=== PATIENT | female | born 1990 | race American Indian/Alaskan Native ===

== ENCOUNTER 2016-09-05 07:25 | Emergency (ER) | payer MEDICAID ==
[2016-09-05 07:43] VITALS: BP 118/76
--- NOTE | 2016-09-05 09:52 | Emergency Department Report ---
HPI - General Chief Complaint: Chest Pain Time Seen by Provider: 09/05/16 09:47 - HPI HPI: 26-year-old -[place] female that is 5 weeks comes in today for complaint of right side chest pain that radiated to her back times this morning. Patient reports that she's had a cough for approximately 3 days. She denies any shortness of breathing denies any fever no chills no dysuria she is voiding well she does admit to nausea and vomiting with the . She does have a past medical history of asthma she is 3 para 2. She did start vitamins on Sunday. She reports now that she is having no chest pain or discomfort no shortness of breathing and no cough at this time. [facility]. ED Past Medical Hx - Past Medical History Hx Asthma: Yes Additional medical history: pnuemonia in may 2015 - Surgical History Additional Surgical History: left knee surgery, c sect X 2 - Social History Smoking Status: Never Smoker Substance Use Type: None - Medications Home Medications: Home Medications Medication Instructions Recorded Confirmed Last Taken Type Albuterol Sulfate [Ventolin HFA] 2 puff IH Q4H PRN #1 inh 05/28/15 09/05/16 10:00 Rx ED Review of Systems ROS: Stated complaint: CHEST TIGHTNESS/5 WKS PREG/ Other details as noted in HPI Respiratory: cough Cardiovascular: chest pain (denies currently) Endocrine: no symptoms reported Gastrointestinal: denies: abdominal pain, nausea, diarrhea Genitourinary: denies: urgency, dysuria, discharge Musculoskeletal: denies: back pain, joint swelling, arthralgia Skin: denies: rash, lesions Neurological: denies: headache, weakness, paresthesias Psychiatric: denies: anxiety, depression Physical Exam - Physical Exam Vital Signs: Vital Signs 09/05/16 07:39 Temperature 98.0 F Pulse Rate 88 Respiratory 16 Rate Blood Pressure 118/76 O2 Sat by Pulse 98 Oximetry General: Patient's alert and oriented 3. She is no acute distress. She denies any pain at this time. Physical Exam: GENERAL: Alert and oriented x3, no apparent distress, Normal Gait, atraumatic. HEAD: Head is normocephalic and a-traumatic. MOUTH:Mouth is well hydrated and without lesions. Tonsils nonerythematous or swollen, Uvula midline, Tongue not elevated. Mucous membranes are moist. Posterior pharynx clear, no exudate or lesions. Patent airways. NECK: Supple. Non edematous, No carotid bruits. No lymphadenopathy or thyromegaly. LUNGS: Symetrical with respiration, No wheezing, no rales or crackles, CTAB. HEART: S1, S2 present, regular rate and rhythm without murmur, no rubs, no gallops. ABDOMEN: No organomegaly was noted,Positive bowel sounds, soft, and non- distended. . Nontender to palpation on all Quadrants, NO CVA tenderness. EXTREMITIES/MUSCULOSKELETAL: No cyanosis, clubbing, rash, lesions or edema. Full ROM bilaterally. UE/LE Pulses 2+ bilaterally. LE and UE 5+ strength bilaterally NEUROLOGIC: No focal Deficit, Cranial nerves II through XII are grossly intact. No loss of sensation, No facial droop, PSYCHIATRIC: Mood is congruent with affect, . SKIN: Warm and dry, No lesions, No ulceration or induration present ED Course Vital Signs 09/05/16 07:39 Temperature 98.0 F Pulse Rate 88 Respiratory 16 Rate Blood Pressure 118/76 O2 Sat by Pulse 98 Oximetry ED Medical Decision Making - Medical Decision Making Patient has been evaluated by this provider fast track. Discussed with patient that her exam was within normal limits. Also discussed the patient to continue with the vitamins. She can only take Tylenol for pain management. [facility]. She may return back to the emergency room if symptoms recur persist or gets worse. Patient verbalized understanding Critical care attestation.: If time is entered above; I have spent that time in minutes in the direct care of this critically ill patient, excluding procedure time. ED Disposition Clinical Impression: Chest pain Qualifiers: Chest pain type: unspecified Qualified Code(s): R07.9 - Chest pain, unspecified Disposition: DISCHARGED TO HOME OR SELFCARE Is pt being admited?: No Does the pt Need Aspirin: No Condition: Stable Instructions: Chest Pain (ED) Additional Instructions: Please return to the emergency room if chest pains persist or gets worse. If you develop a fever or have respiratory distress. Referrals: PRIMARY CARE,MD [Primary Care Provider] - 3-5 Days Forms: Work/School Release Form(ED)
== END 2016-09-05 09:56 | disposition home or self-care (01) ==
LOC: ED 07:25
DX: O21.9 Vomiting of pregnancy, unspecified (principal); R07.9 Chest pain, unspecified; J45.909 Unspecified asthma, uncomplicated; J18.9 Pneumonia, unspecified organism; Z3A.01 Less than 8 weeks gestation of pregnancy
CPT/HCPCS: 93005; 93010; 99282

== ENCOUNTER 2019-09-14 23:29 | Emergency (ER) | payer MEDICAID ==
[2019-09-15] MEDS ORDERED: dexAMETHasone 20 MG/5 ML VIAL IM ONE (00:25)
[2019-09-15] MEDS ORDERED: ACETAMINOPHEN 500 MG TAB PO ONE (00:25)
--- NOTE | 2019-09-15 00:27 | XRay Report ---
CHEST 1 VIEW INDICATION: Chest Pain. COMPARISON: Chest x-ray from 03/05/2016 FINDINGS: Support devices: None. Heart: Within normal limits. Lungs/Pleura: No acute air space or interstitial disease. Additional findings: None. IMPRESSION: 1. No acute findings. Signer Name: Brent Santillan MD Signed: 09/15/2019 12:22 AM Workstation Name: [email or web address]
[2019-09-15 00:45] LABS: Basophils % (Auto) 0.4 % (0.0-1.8); Eosinophils # (Auto) 0.1 K/mm3 (0.0-0.4); Eosinophils % (Auto) 0.8 % (0.0-4.3); Hematocrit 30.8 % (30.3-42.9); Hemoglobin 10.5 gm/dl (10.1-14.3); Lymphocytes # (Auto) 2.1 K/mm3 (1.2-5.4); Mean Corpuscular HGB Conc 34 % (30-34); Mean Corpuscular Volume 86 fl (79-97); Monocytes # (Auto) 0.4 K/mm3 (0.0-0.8); Monocytes % (Auto) 4.9 % (0.0-7.3); Platelet Count 278 K/mm3 (140-440); Red Blood Count 3.57 M/mm3 (3.65-5.03); Red Cell Distribution Width 15.2 % (13.2-15.2)
[2019-09-15 01:14] LABS: Alanine Aminotransferase 16 units/L (7-56); Albumin 4.2 g/dL (3.9-5); BUN/Creatinine Ratio 9; Blood Urea Nitrogen 6 mg/dL (7-17); Calcium 9.4 mg/dL (8.4-10.2); Hemolysis Index 2
--- NOTE | 2019-09-15 01:20 | Emergency Department Report ---
ED General Adult HPI - General Chief complaint: Dyspnea/Respdistress Stated complaint: SOB Source: patient Mode of arrival: Ambulatory Limitations: No Limitations - History of Present Illness Initial comments: Patient is a 29-year-old -[place] Islander female with a history of chronic anxiety presents to the ED with complaint of acute onset persistent severe sore throat with dysphagia, hoarseness and persistent chest tightness and shortness of breath for the last 2 days. Patient also states that her symptoms got worse especially shortness of breath and chest tightness after she became more anxious when she watched news on TV regarding coronavirus. Patient states that she does not take any medication for anxiety and that since the coronavirus pandemic started her anxiety has worsened. Patient denies chest pain, dizziness, syncope, nausea, vomiting, headache, fever, chills, cough, abdominal pain, headache or nasal and sinus congestion. MD Complaint: Sore throat, hoarsenesschest tightnes, anxious -: Sudden, days(s) (2) Location: mouth, chest Radiation: non-radiation Severity scale (0 -10): 5 Quality: aching, sharp, constant Consistency: constant Improves with: none Worsens with: eating Associated Symptoms: denies other symptoms, shortness of breath. denies: confusion, chest pain, cough, diaphoresis, fever/chills, headaches, loss of appetite, malaise, nausea/vomiting, rash, seizure, syncope, weakness, other Treatments Prior to Arrival: none - Related Data Previous Rx's Medication Instructions Recorded Last Taken Type Albuterol Sulfate [Ventolin HFA] 2 puff IH Q4H PRN #1 inh 05/28/15 09/03/16 10:00 Rx Albuterol Sulfate [Proventil Hfa] 1 - 2 puff IH Q6H PRN #1 hfa.aer.ad 09/15/19 Unknown Rx Azithromycin [Zithromax Z-TERESE] 250 mg PO DAILY #6 tablet 09/15/19 Unknown Rx Ibuprofen [Motrin] 600 mg PO Q8H PRN #24 tablet 09/15/19 Unknown Rx Lidocaine Viscous 2% 10 ml PO Q6H PRN #120 ml 09/15/19 Unknown Rx hydrOXYzine PAMOATE [Vistaril] 25 mg PO Q6HR PRN #30 capsule 09/15/19 Unknown Rx methylPREDNISolone [Medrol 4MG 4 mg PO DAILY #21 tab.ds.pk 09/15/19 Unknown Rx DOSEPAK (21 tabs)] Allergies Allergy/AdvReac Type Severity Reaction Status Date / Time No Known Allergies Allergy Verified 09/05/16 07:44 ED Review of Systems ROS: Stated complaint: SOB Other details as noted in HPI Constitutional: denies: chills, fever Eyes: denies: eye pain, eye discharge, vision change ENT: throat pain. denies: ear pain Respiratory: shortness of breath. denies: cough, wheezing Cardiovascular: chest pain (Chest tightness). denies: palpitations Endocrine: no symptoms reported Gastrointestinal: denies: abdominal pain, nausea, diarrhea Genitourinary: denies: urgency, dysuria, discharge Musculoskeletal: denies: back pain, joint swelling, arthralgia Skin: denies: rash, lesions Neurological: denies: headache, weakness, paresthesias Psychiatric: anxiety. denies: depression Hematological/Lymphatic: denies: easy bleeding, easy bruising ED Past Medical Hx - Past Medical History Previous Medical History?: Yes Hx Asthma: Yes Additional medical history: pnuemonia in may 2015 - Surgical History Past Surgical History?: Yes Additional Surgical History: left knee surgery, c sect X 3 - Social History Smoking Status: Current Every Day Smoker Substance Use Type: None - Medications Home Medications: Home Medications Medication Instructions Recorded Confirmed Last Taken Type Albuterol Sulfate [Ventolin HFA] 2 puff IH Q4H PRN #1 inh 05/28/15 09/05/16 09/03/16 10:00 Rx Albuterol Sulfate [Proventil Hfa] 1 - 2 puff IH Q6H PRN #1 hfa.aer.ad 09/15/19 Unknown Rx Azithromycin [Zithromax Z-TERESE] 250 mg PO DAILY #6 tablet 09/15/19 Unknown Rx Ibuprofen [Motrin] 600 mg PO Q8H PRN #24 tablet 09/15/19 Unknown Rx Lidocaine Viscous 2% 10 ml PO Q6H PRN #120 ml 09/15/19 Unknown Rx hydrOXYzine PAMOATE [Vistaril] 25 mg PO Q6HR PRN #30 capsule 09/15/19 Unknown Rx methylPREDNISolone [Medrol 4MG 4 mg PO DAILY #21 tab.ds.pk 09/15/19 Unknown Rx DOSEPAK (21 tabs)] ED Physical Exam - General Limitations: No Limitations General appearance: alert, in no apparent distress - Head Head exam: Present: atraumatic, normocephalic, normal inspection - Eye Eye exam: Present: normal appearance, PERRL, EOMI Pupils: Present: normal accommodation - ENT ENT exam: Present: mucous membranes moist, TM's normal bilaterally, normal external ear exam, other (Erythematous oropharynx with white exudates on the tonsils) - Neck Neck exam: Present: normal inspection, full ROM - Respiratory Respiratory exam: Present: normal lung sounds bilaterally. Absent: respiratory distress, wheezes, rales, rhonchi, chest wall tenderness, accessory muscle use, decreased breath sounds - Cardiovascular Cardiovascular Exam: Present: regular rate, normal rhythm, normal heart sounds. Absent: systolic murmur, diastolic murmur, rubs, gallop - GI/Abdominal GI/Abdominal exam: Present: soft, normal bowel sounds. Absent: tenderness, guarding, rebound, hyperactive bowel sounds - Extremities Exam Extremities exam: Present: normal inspection, full ROM, normal capillary refill - Back Exam Back exam: Present: normal inspection, full ROM. Absent: tenderness, muscle spasm - Neurological Exam Neurological exam: Present: alert, oriented X3, CN II-XII intact, normal gait, reflexes normal - Psychiatric Psychiatric exam: Present: normal affect, normal mood, anxious - Skin Skin exam: Present: warm, dry, intact, normal color. Absent: rash ED Course Vital Signs 09/14/19 09/15/19 09/15/19 23:36 00:35 01:32 Temperature 98.6 F Pulse Rate 68 Respiratory 18 16 16 Rate Blood Pressure 125/74 Blood Pressure [Left] O2 Sat by Pulse 100 Oximetry 09/15/19 01:39 Temperature 98.2 F Pulse Rate 79 Respiratory 16 Rate Blood Pressure Blood Pressure 116/70 [Left] O2 Sat by Pulse 99 Oximetry ED Medical Decision Making - Lab Data Result diagrams: 09/15/19 00:35 09/15/19 00:35 - Radiology Data Radiology results: report reviewed, image reviewed Findings [facility] [address] [place] [address] XRay Report Signed Patient: CHANEL MIRZA Taz#: [id number] : 1990 Acct:[id number] Age/Sex: 29 / F ADM Date: 09/14/19 Loc: ED Attending Dr: Ordering Physician: BECKIE ESPINOSA Date of Service: 09/14/19 Procedure(s): XR chest 1V ap Accession Number(s): [id number] cc: BECKIE Garcia Time In Minutes: CHEST 1 VIEW INDICATION: Chest Pain. COMPARISON: Chest x-ray from 03/05/2016 FINDINGS: Support devices: None. Heart: Within normal limits. Lungs/Pleura: No acute air space or interstitial disease. Additional findings: None. IMPRESSION: 1. No acute findings. Signer Name: Brent Santillan MD Signed: 09/15/2019 12:22 AM Workstation Name: [id number] Transcribed By: JEREMIAS Dictated By: Brent Santillan MD Electronically Authenticated By: Brent Santillan MD Signed Date/Time: 09/15/1921 DD/ TD/TT: - Medical Decision Making This is a 29-year-old -[place] female with a history of chronic anxiety presents to the ED with complaint of acute onset persistent severe sore throat with dysphagia, hoarseness and persistent chest tightness and shortness of breath for the last 2 days. Patient also states that her symptoms got worse especially shortness of breath and chest tightness after she became more anxious when she watched news on TV regarding coronavirus. Patient states that she does not take any medication for anxiety and that since the coronavirus pandemic started her anxiety has worsened. In the ED, patient is alert and oriented x3 and is not in distress, anxious and cries during the physical exam but in no acute distress. Labs were drawn and patient was treated for sore throat with Tylenol and the dexamethasone. Chest x-ray shows no acute cardiopulmonary abnormalities or pneumonitis. Lab test results were reviewed and are all nonactionable. On reevaluation, patient felt better and was discharged home on medications including Vistaril for anxiety. Patient was advised to follow-up with her primary care physician in 3 to 5 days for reevaluation or return to the ED immediately if symptoms get worse. - Differential Diagnosis Anxiety; pharyngitis; URI; Bronchitis Critical care attestation.: If time is entered above; I have spent that time in minutes in the direct care of this critically ill patient, excluding procedure time. ED Disposition Clinical Impression: Anxiety as acute reaction to exceptional stress Acute pharyngitis Qualifiers: Pharyngitis/tonsillitis etiology: other specified organisms Qualified Code(s): J02.8 - Acute pharyngitis due to other specified organisms Disposition: TO HOME OR SELFCARE Is pt being admited?: No Does the pt Need Aspirin: No Condition: Stable Instructions: Pharyngitis (ED), Generalized Anxiety Disorder (ED) Additional Instructions: Take medication with food, drink plenty of fluids and follow-up with your primary care physician in 5 to 7 days for reevaluation. Return to the ED immediately if symptoms get worse. Prescriptions: Lidocaine Viscous 2% 10 ml PO Q6H PRN #120 ml PRN Reason: Pain , Severe (7-10) methylPREDNISolone [Medrol 4MG DOSEPAK (21 tabs)] 4 mg PO DAILY #21 tab.ds.pk Ibuprofen [Motrin] 600 mg PO Q8H PRN #24 tablet PRN Reason: Pain Albuterol Sulfate [Proventil Hfa] 1 - 2 puff IH Q6H PRN #1 hfa.aer.ad PRN Reason: Dyspnea hydrOXYzine PAMOATE [Vistaril] 25 mg PO Q6HR PRN #30 capsule PRN Reason: Anxiety Azithromycin [Zithromax Z-TERESE] 250 mg PO DAILY #6 tablet Referrals: BRANNON MAN MD [Primary Care Provider] - 3-5 Days Time of Disposition: 01:20 Print Language: CITIZEN OF [place]
[2019-09-16 12:58] VITALS: BP 116/70
== END 2019-09-15 01:40 | disposition home or self-care (01) ==
LOC: ED 23:29
DX: F41.1 Generalized anxiety disorder (principal); F43.0 Acute stress reaction; J02.9 Acute pharyngitis, unspecified; J45.909 Unspecified asthma, uncomplicated; F17.200 Nicotine dependence, unspecified, uncomplicated; Z79.899 Other long term (current) drug therapy; Z98.890 Other specified postprocedural states
CPT/HCPCS: 36415; 71045; 80053; 84484; 84703; 85025; 93005; 96372; 99284; J1100

== ENCOUNTER 2020-04-25 16:21 | Emergency (ER) | payer MEDICAID ==
[2020-04-25 16:38] VITALS: BP 112/63
== END 2020-04-25 16:42 | disposition left against medical advice (07) ==
LOC: ED 16:21
DX: R07.89 Other chest pain (principal); R05 Cough; R51.9 Headache, unspecified; Z53.21 Procedure and treatment not carried out due to patient leaving prior to being seen by health care provider

== ENCOUNTER 2021-06-13 19:57 | Emergency (ER) | payer MEDICAID ==
[2021-06-13 20:33] VITALS: BP 126/71
--- NOTE | 2021-06-14 09:03 | Electrocardiograph Report ---
[facility] Test Date: 2021-06-13 Test Time: 20:15:41 Pat Name: CHANEL MIRZA Department: Room: Gender: F Clinical Trials Nurse: CHE : 1990 Requested By: JESSICA HARP Order Number: [id number] Reading MD: Jose Witt Measurements Intervals [place] Rate: 65 P: 48 AK: 169 QRS: 67 QRSD: 86 T: 49 QT: 415 QTc: 433 Interpretive Statements Sinus rhythm No previous ECG available for comparison Electronically Signed On 06-14-2021 9:03:29 EST by Jose Witt
== END 2021-06-14 00:15 | disposition left against medical advice (07) ==
LOC: ED 19:57
DX: R07.89 Other chest pain (principal); Z53.21 Procedure and treatment not carried out due to patient leaving prior to being seen by health care provider
CPT/HCPCS: 93005; 93010